=== PATIENT | female | born 1990 | race American Indian/Alaskan Native ===

== ENCOUNTER 2017-01-15 09:50 | Inpatient (IN) | payer MEDICAID ==
[2017-01-15] MEDS ORDERED: REGLAN IV NR (10:23)
[2017-01-15] MEDS ORDERED: PEPCID IV NR (10:23)
[2017-01-15] MEDS ORDERED: LACTATED RINGERS 1,000 ML ONE (10:35)
[2017-01-15] MEDS ORDERED: BICITRA PO ONE (10:35)
[2017-01-15] MEDS ORDERED: BICITRA PO NR (10:35)
[2017-01-15] MEDS: LACTATED RINGERS 1,000 ML IV SCH ×2 (10:42→10:52)
[2017-01-15] MEDS ORDERED: PITOCin/NS 20 UNIT/1000ML DRIP 20 UNITS/1,000 ML BAG IV SCH ×2 (11:00→15:34)
[2017-01-15 11:04] LABS: Basophils % (Auto) 0.3 % (0.0-1.8); Eosinophils % (Auto) 0.8 % (0.0-4.3); Hematocrit 29.3 % (30.3-42.9); Hemoglobin 9.5 gm/dl (10.1-14.3); Mean Corpuscular HGB Conc 33 % (30-34); Mean Corpuscular Volume 73 fl (79-97); Platelet Count 248 K/mm3 (140-440); Red Cell Distribution Width 16.8 % (13.2-15.2); White Blood Count 5.6 K/mm3 (4.5-11.0)
[2017-01-15] MEDS ORDERED: NARCAN 0.4 MG/1 ML IV PRN ×2 (11:05→15:34)
[2017-01-15] MEDS ORDERED: ZOFRAN IV PRN ×2 (11:05→15:34)
[2017-01-15] MEDS ORDERED: BENADRYL IV PRN ×2 (11:05→18:03)
--- NOTE | 2017-01-15 11:05 | Anesthesia Consultation ---
Anesthesia Consult and Med Hx Date of service: 01/15/17 - Airway Anesthetic Teeth Evaluation: Good ROM Head & Neck: Adequate Mental/Hyoid Distance: Adequate Mallampati Class: Class II Intubation Access Assessment: Probably Good - Pulmonary Exam CTA: Yes - Cardiac Exam Cardiac Exam: RRR - Pre-Operative Health Status ASA Pre-Surgery Classification: ASA2 Proposed Anesthetic Plan: Spinal - Pulmonary Hx Asthma: No COPD: No Hx Pneumonia: No - Cardiovascular System Hx Hypertension: No - Central Nervous System Hx Seizures: No Hx Psychiatric Problems: No - Endocrine Hx Renal Disease: No Hx End Stage Renal Disease: No Hx Hypothyroidism: No Hx Hyperthyroidism: No - Hematic Hx Anemia: No Hx Sickle Cell Disease: No - Other Systems Hx Alcohol Use: No - Additional Comments Anesthesia Medical History Comments: +IUP, PREVIOUS X 2
--- NOTE | 2017-01-15 11:05 | Anesthesia Day of Surgery ---
Anesthesia Day of Surgery - Day of Surgery Patient Examined: Yes Patient H&P Reviewed: Yes Patient is NPO: Yes
[2017-01-15 11:06] LABS: Mean Corpuscular Hemoglobin 24 pg (28-32)
[2017-01-15] MEDS ORDERED: TORADOL IV PRN (11:06)
--- NOTE | 2017-01-15 11:36 | History and Physical Report ---
History of Present Illness Date of examination: 01/15/17 Date of admission: 01/15/17 09:50 Chief complaint: I'm here for my History of present illness: Patient is a 26 year old who presents at 39.1 weeks for elective repeat c- seciton and bilateral tubal ligation. Her course has been uncomplicated.GBS negative. GC/CT negative Past History Past Surgical History: section Family/Genetic History: hypertension Social history: single - Obstetrical History Expected Date of Delivery: 01/21/17 Actual Gestation: 39 Week(s) 1 Day(s) : 3 Number of Living Children: 2 Medications and Allergies Allergies Allergy/AdvReac Type Severity Reaction Status Date / Time No Known Allergies Allergy Unverified 01/15/17 10:22 Home Medications Medication Instructions Recorded Confirmed Last Taken Type No Known Home Medications [No 01/15/17 01/15/17 Unknown History Reported Home Medications] Active Meds: Active Medications Citric Acid/Sodium Citrate (Bicitra) 30 ml PO ONCE NR Stop: 01/15/17 23:59 Diphenhydramine HCl (Benadryl) 25 mg IV Q4H PRN PRN Reason: Itching Famotidine (Pepcid) 20 mg IV ONCE NR Stop: 01/15/17 23:59 Lactated Ringer's (Lactated Ringers) 1,000 mls @ 2,250 mls/hr IV PREOP FABRIZIO Stop: 01/16/17 11:27 Last Admin: 01/15/17 10:52 Dose: 2,250 mls/hr Oxytocin/Sodium Chloride (Pitocin/Ns 20 Unit/1000ml Drip) 20 units in 1,000 mls @ 0 mls/hr IV TITR FABRIZIO PRN Reason: As Directed Ketorolac Tromethamine (Toradol) 30 mg IV Q6H PRN PRN Reason: Pain, Moderate (4-6) Stop: 01/20/17 11:05 Metoclopramide HCl (Reglan) 10 mg IV ONCE NR Stop: 01/15/17 23:59 Naloxone HCl (Narcan 0.4 Mg/1 Ml) 0.2 mg IV Q2MIN PRN PRN Reason: Res Rate </= 8 or 02 SAT < 92% Stop: 01/17/17 11:06 Ondansetron HCl (Zofran) 4 mg IV Q8H PRN PRN Reason: Nausea And Vomiting Review of Systems All systems: negative Eyes: deferred Genitourinary: contractions - Vital Signs Vital signs: Vital Signs Temp Pulse Resp BP 98.1 F 67 18 102/62 01/15/17 10:24 01/15/17 10:24 01/15/17 10:24 01/15/17 10:24 Temp Pulse Resp BP Pulse Ox 98.1 F 67 18 102/62 01/15/17 10:24 01/15/17 10:24 01/15/17 10:24 01/15/17 10:24 - Physical Exam Cardiovascular: Regular rate, Normal S1, Normal S2 Lungs: Positive: Clear to auscultation, Normal air movement Abdomen: Positive: normal appearance, soft, normal bowel sounds Genitourinary (Female): Positive: normal external genitalia, normal perenium Vagina: Positive: normal moisture Uterus: Positive: normal size Extremities: Positive: normal - Obstetrical Cervical Dilatation: 0 Cervical Effacement Percentage: 0 station: -3 Uterine Contraction Intensity: Moderate Results Result Diagrams: 01/15/17 10:50 Abnormal lab results 01/15/17 Range/Units 10:50 Hgb 9.5 L (10.1-14.3) gm/dl Hct 29.3 L (30.3-42.9) % MCV 73 L (79-97) fl MCH 24 L (28-32) pg RDW 16.8 H (13.2-15.2) % Seg Neutrophils % 70.5 H (40.0-70.0) % All other labs normal. Assessment and Plan IUP at 39 weeks here for elective repeat and BTL. Consents signed and placed on chart. Will proceed when ready.
[2017-01-15] MEDS ORDERED: MORPHINE ONE (12:08)
[2017-01-15] MEDS ORDERED: NACL 0.9% IR ONE (12:45)
[2017-01-15] MEDS ORDERED: WATER FOR IRRIG STERILE IR ONE (12:45)
[2017-01-15] MEDS ORDERED: ZOFRAN ONE (12:51)
[2017-01-15] MEDS ORDERED: NEO SYNEPHRINE/NS Syringe(OR USE) IV ONE (13:00)
[2017-01-15] MEDS ORDERED: DILAUDID ONE (13:13)
[2017-01-15] MEDS ORDERED: BENADRYL ONE (13:38)
--- NOTE | 2017-01-15 13:48 | Operative Report ---
Operative Report Operative Report: The operative report for patient Iveth Alejandra Date of service 01/15/2017 Preoperative diagnosis: Intrauterine at 39.1 weeks 2. Previous section 2 3. Undesired fertility Postoperative diagnosis: Same Procedure: Repeat low transverse section with bilateral tubal ligation Surgeon: Dr. Kaela Mora EBL: 700 Urine output: 300 IV fluids: 200 Findings: Viable female in the vertex occiput posterior position. Weight 7 lbs. 1 oz. 3204 g Apgars 9 and 9]. Otherwise normal pelvic anatomy Specimens: None Complications: None Procedure: The patient was admitted to the OR with IV running and in place. She was properly identified as herself. She was given spinal anesthesia without difficulty She was placed in the dorsal supine position with a leftward tilt. A [place] catheter was inserted. She was then prepped and draped in the normal sterile fashion. An Allis test was used to confirm adequate anesthesia. Once confirmed, the incision was made with the scalpel and carried to the underlying fascia using the scalpel and the Bovie. The fascia was incised in the midline and incision was extended bilaterally using the curved Mcduffie scissors. The fascia was then dissected from the underlying rectus muscles in a series of sharp and blunt dissection using the Mcduffie scissors. Muscles were in the in the midline sharply using Metzenbaum scissors and the peritoneum was entered into bluntly using the surgeon's fingers. A bladder blade was then placed into the incision to protect the bladder. Following this the bladder flap was created. Hysterotomy incision was then made in the scalpel. Once near the empty amniotic sac was ruptured for clear fluid. The infant was then delivered in the occiput posterior position. Her mouth and nose were suctioned on the field. A nuchal cord 2 was reduced on the field. The cord was clamped and cut and he was handed to the waiting NICU personnel. The uterus was then exteriorized and cleared of all clots and debris. The hysterotomy incision was then closed in a running locked fashion using 0 Vicryl. Once hemostatic, attention was turned to the fallopian tubes. The tubal ligation was performed in the [place] style. There was excellent hemostasis noted The abdomen was then copiously irrigated with warm normal saline. Following this the uterus was replaced into the abdominal cavity. At this point the muscles were reapproximated in the midline using individual sutures of 0 Vicryl. Following this the fascia was closed in a running fashion using 0 Vicryl. Tissue was then copiously irrigated. Skin was closed in a running fashion using 3-0 Monocryl. The sponge lap needle and attention counts were correct 2. The patient tolerated the procedure well. She was taken to recovery in stable condition.
[2017-01-15] MEDS: DILAUDID IV PRN ×4 (14:05→22:38)
[2017-01-15] MEDS ORDERED: LANSINOH TP PRN (15:34)
[2017-01-15] MEDS ORDERED: SODIUM CHLORIDE FLUSH SYRINGE 10 ML IV NR (15:34)
[2017-01-15] MEDS ORDERED: MILK OF MAGNESIA PO PRN (15:34)
[2017-01-15] MEDS ORDERED: D5LR 1,000 ML IV SCH (15:34)
[2017-01-15] MEDS ORDERED: TUCKS PAD TP PRN (15:34)
[2017-01-16] MEDS: DILAUDID IV PRN (02:10)
[2017-01-16 02:31] LABS: Hematocrit 21.4 % (30.3-42.9); Hemoglobin 6.8 gm/dl (10.1-14.3)
[2017-01-16] MEDS ORDERED: BOOSTRIX IM ONE (06:05)
[2017-01-16] MEDS: PERCOCET 5/325 PO PRN ×3 (06:09→17:16)
[2017-01-16] MEDS: MYLICON PO PRN ×2 (06:11→17:16)
[2017-01-16] MEDS: MOTRIN PO PRN ×2 (09:07→17:16)
[2017-01-16] MEDS: PRENATAL VITAMIN PO SCH (10:39)
[2017-01-16] MEDS: FEOSOL PO SCH (10:40)
--- NOTE | 2017-01-16 10:45 | Progress Note ---
Subjective Date of service: 01/16/17 Interval history: 1st POD after Patient is in the bed, comfortable. Pain is well controlled with pain meds. Ambulated well No residual neurological deficit. No pruritus. No anesthesia complications Objective - Constitutional Vitals: Vital Signs - 12hr 01/15/17 01/16/17 01/16/17 23:08 00:00 02:10 Temperature 98.2 F Pulse Rate 63 Respiratory 18 18 18 Rate Blood Pressure 128/68 01/16/17 01/16/17 01/16/17 06:09 08:25 09:07 Temperature 98.5 F Pulse Rate 74 Respiratory 18 20 18 Rate Blood Pressure 97/47 01/16/17 10:40 Temperature Pulse Rate Respiratory 18 Rate Blood Pressure - Labs CBC & Chem 7: 01/16/17 01:53 Labs: Abnormal lab results 01/15/17 01/16/17 Range/Units 10:50 01:53 Hgb 9.5 L 6.8 L (10.1-14.3) gm/dl Hct 29.3 L 21.4 L D (30.3-42.9) % MCV 73 L (79-97) fl MCH 24 L (28-32) pg RDW 16.8 H (13.2-15.2) % Seg Neutrophils % 70.5 H (40.0-70.0) %
[2017-01-16] MEDS: BENADRYL PO PRN (19:47)
[2017-01-17] MEDS: BENADRYL PO PRN ×4 (00:33→18:28)
[2017-01-17] MEDS: PERCOCET 5/325 PO PRN ×2 (05:01→09:40)
[2017-01-17] MEDS ORDERED: DULCOLAX PR PRN (10:43)
[2017-01-17] MEDS: PRENATAL VITAMIN PO SCH (11:45)
[2017-01-17] MEDS: FEOSOL PO SCH (11:45)
--- NOTE | 2017-01-17 13:23 | Progress Note ---
Assessment and Plan POD 1 s/p rltcs with btl. Patient doing well except for itching which may be due to Percocet. Will continue routine care. Subjective - Subjective Date of service: 01/17/17 Interval history: Patient is a 26 year old who presents at 39.1 weeks for elective repeat c- seciton and bilateral tubal ligation. Her course has been uncomplicated.GBS negative. GC/CT negative Patient reports: appetite normal, voiding normally, pain well controlled, ambulating normally, other (itching) : doing well Objective - Vital Signs Latest vital signs: Vital Signs Temp Pulse Resp BP 01/17/17 09:40 20 01/17/17 08:37 99 F 78 18 111/65 01/17/17 05:01 16 01/17/17 00:00 98.4 F 76 20 102/68 01/16/17 17:16 20 01/16/17 17:15 98.2 F 69 20 127/61 Intake and Output 01/16/17 01/17/17 01/17/17 22:59 06:59 14:59 Intake Total 360 360 Balance 360 360 Intake: Oral 360 360 Other: Total, Intake Amount 240 360 # Voids Void 1 1 1 - Exam Breasts: Present: deferred Cardiovascular: Present: Regular rate, Normal S1, Normal S2 Lungs: Present: Clear to auscultation, Normal air movement Abdomen: Present: normal appearance, soft, normal bowel sounds Vulva: both: normal Uterus: Present: normal, firm Extremities: Present: normal Incision: Present: normal, intact
[2017-01-17] MEDS: NORCO 5/325 PO PRN ×2 (14:37→19:31)
[2017-01-17] MEDS: MYLICON PO PRN (14:38)
--- NOTE | 2017-01-17 17:58 | Discharge Summary ---
Providers - Providers Date of Admission: 01/15/17 09:50 Date of discharge: 01/18/17 Attending physician: YAS GUPTA Primary care physician: YAS GUPTA Hospitalization Reason for admission: section Delivery: Procedure: bilateral tubal ligation, repeat low transverse Episiotomy: none Incision: normal, dry, other (mild drainage) complications: none Discharge diagnosis: IUP at term delivered baby: female Hospital course: Unremarkable Condition at discharge: Good Disposition: DC-01 TO HOME OR SELFCARE Plan - Discharge Medications Prescriptions: Ferrous Sulfate [Feosol 325 MG tab] 325 mg PO BID #60 tablet HYDROcodone/APAP 5-325 [[place] 5-325 mg TAB] 2 each PO Q4H PRN #60 tablet PRN Reason: Pain, Moderate (4-6) Ibuprofen [Motrin 800 MG tab] 800 mg PO Q8HR PRN #40 tablet PRN Reason: Pain Oxycodone HCl/Acetaminophen [Percocet 7.5/325 mg] 1 each PO Q6HR PRN #50 tablet PRN Reason: Pain - Provider Discharge Summary Activity: routine, no sex for 6 weeks, no heavy lifting 4 weeks, no strenuous exercise Diet: routine Instructions: routine Additional instructions: [] Smoking cessation referral if applicable(refer to patient education folder for contact #) [] Refer to [facility] Booklet Call your doctor immediately for: * Fever > 100.5 * Heavy vaginal bleeding ( >1 pad per hour) * Severe persistent headache * Shortness of breath * Reddened, hot, painful area to leg or breast * Drainage or odor from incision. * Keep incision clean and dry at all times and follow doctor's instructions regarding bathing/showering - Follow up plan Follow up: YAS GUPTA MD [Primary Care Provider] - 7 Days
[2017-01-17] MEDS: MOTRIN PO PRN (23:30)
[2017-01-18] MEDS: NORCO 5/325 PO PRN ×2 (00:51→11:37)
[2017-01-18] MEDS: MOTRIN PO PRN (11:37)
[2017-01-18] MEDS: FEOSOL PO SCH (11:38)
[2017-01-18] MEDS: PRENATAL VITAMIN PO SCH (11:38)
[2017-01-18 14:20] VITALS: BP 135/70
== END 2017-01-18 14:15 | disposition home or self-care (01) | DRG 766 ==
LOC: APU 09:50 → OB 14:57
PROVIDERS: ADMIT Obstetrics & Gynecology; ATTEND Obstetrics & Gynecology
PROC: 10D00Z1 Extraction of Products of Conception, Low, Open Approach (ICD-10-PCS; principal; 2017-01-15)
PROC: 0UL70ZZ Occlusion of Bilateral Fallopian Tubes, Open Approach (ICD-10-PCS; 2017-01-15)
DX: O34.219 Maternal care for unspecified type scar from previous cesarean delivery (principal); Z3A.39 39 weeks gestation of pregnancy; Z37.0 Single live birth; O69.81X0 Labor and delivery complicated by cord around neck, without compression, not applicable or unspecified; Z30.2 Encounter for sterilization
CPT/HCPCS: 36415; 85014; 85018; 85025; 86592; 86850; 86900; 86901; 88302; 90471; 90715; 99211; A6250; G0463; J1170; J1200; J1885; J2270; J2370; J2405; J2590; J2765; J7120